=== PATIENT | female | born 1960 | race Caucasian/White ===

== ENCOUNTER 2021-02-11 09:29 | Outpatient (CLI) | payer OTHER | END 2021-02-11 09:30 | disposition home or self-care (01) | LOC: CSHMAMMO 09:29 | PROVIDERS: ATTEND Internal Medicine | DX: Z12.31 Encounter for screening mammogram for malignant neoplasm of breast (principal) | CPT/HCPCS: 77063; 77067 ==

== ENCOUNTER 2023-11-23 10:19 | Outpatient (CLI) | payer OTHER | END 2023-11-23 10:20 | disposition home or self-care (01) | LOC: CSHMAMMO 10:19 | PROVIDERS: ATTEND Internal Medicine | DX: Z12.31 Encounter for screening mammogram for malignant neoplasm of breast (principal) | CPT/HCPCS: 77063; 77067 ==